=== PATIENT | female | born 2000 | race Asian ===

== ENCOUNTER 2022-03-01 11:36 | Emergency (ER) | payer BC ==
[~2022-03-01] VITALS: Ht 165.1 cm; Wt 76.0 kg
[2022-03-01] MEDS ORDERED: KETOROLAC 60MG/2ML VIAL IM ONE (14:15)
[2022-03-01 14:49] LABS: MONOTEST NEGATIVE (NEGATIVE)
[2022-03-01] MEDS ORDERED: IBUP-2029 MT (15:54)
[2022-03-01] MEDS ORDERED: AMOX-494 MT (15:54)
[2022-03-01 16:24] VITALS: BP 105/79
== END 2022-03-01 16:25 | disposition home or self-care (01) ==
LOC: ER 12:21
DX: J02.9 Acute pharyngitis, unspecified (principal)
CPT/HCPCS: 81025; 86308; 87070; 87430; 96372; 99283; J1885